=== PATIENT | female | born 1990 | race African-American/Black ===

== ENCOUNTER 2019-07-29 19:22 | Emergency (ER) | payer OTHER ==
[~2019-07-29] VITALS: Ht 208.3 cm; Wt 99.8 kg
[2019-07-29 19:59] LABS: URINE BILIRUBIN NEGATIVE (Negative); URINE BLOOD NEGATIVE (Negative); URINE CLARITY CLEAR; URINE COLOR YELLOW; URINE GLUCOSE-RANDOM* NEGATIVE (Negative); URINE KETONES TRACE (Negative); URINE LEUKOCYTES-REFLEX TRACE (Negative); URINE NITRITE-REFLEX NEGATIVE (Negative); URINE PROTEIN (DIPSTICK) NEGATIVE (Negative); URINE SPECIFIC GRAVITY >= 1.030 (1.005-1.035); URINE UROBILINOGEN 0.2 E.U./dl (0.2-1.0)
[2019-07-29 21:00] LABS: HEMATOCRIT 41.6 % (37.0-47.0); HEMOGLOBIN 13.9 gm/dL (12.0-15.0); MCH 32.3 pg (26.0-34.0); MCHC 33.3 g/dL (28.0-37.0); MCV 97.1 fL (80.0-100.0); PLATELET COUNT 337 thou/uL (150-400); RBC 4.29 mil/uL (4.20-5.00); RDW 13.3 % (10.5-14.5); WBC 7.9 thou/uL (4.0-11.0)
[2019-07-29 21:12] LABS: CALCIUM 8.3 mg/dL (8.5-10.1); CREATININE 0.7 mg/dL (0.6-1.0); POTASSIUM 3.4 mmol/L (3.5-5.1)
[2019-07-29 21:18] LABS: ALBUMIN 4.1 g/dL (3.4-5.0); TOTAL BILIRUBIN 0.6 mg/dL (<0.1-1.0); TOTAL PROTEIN 7.6 g/dL (6.4-8.2)
[2019-07-29 22:00] LABS: ABSOLUTE NEUTROPHILS 4.5 thou/uL (1.4-8.2); ANISOCYTOSIS 1+
[2019-07-29] MEDS ORDERED: ONDANSETRON HCL4 M2 PO (22:02)
[2019-07-29] MEDS ORDERED: PRENATAL FORMU1 EAC1 PO (22:06)
[2019-07-29 22:23] VITALS: BP 138/97
== END 2019-07-29 22:25 | disposition home or self-care (01) ==
LOC: ER 19:22
PROVIDERS: Emergency Medicine; Physician Assistant
DX: O21.8 Other vomiting complicating pregnancy (principal); O26.891 Other specified pregnancy related conditions, first trimester; M54.5 Low back pain; R10.30 Lower abdominal pain, unspecified; Z3A.01 Less than 8 weeks gestation of pregnancy

== ENCOUNTER 2019-12-28 09:20 | Emergency (ER) | payer OTHER ==
[~2019-12-28] VITALS: Ht 170.2 cm; Wt 90.7 kg
[~2019-12-28 09:20] MED LIST: ONDANSETRON HCL4 M2 PO; PRENATAL FORMU1 EAC1 PO
[2019-12-28 09:41] VITALS: BP 140/91
[2019-12-28 09:48] LABS: URINE BILIRUBIN NEGATIVE (Negative); URINE BLOOD NEGATIVE (Negative); URINE CLARITY CLEAR; URINE COLOR YELLOW; URINE GLUCOSE-RANDOM* NEGATIVE (Negative); URINE KETONES NEGATIVE (Negative); URINE LEUKOCYTES-REFLEX NEGATIVE (Negative); URINE NITRITE-REFLEX NEGATIVE (Negative); URINE PROTEIN (DIPSTICK) NEGATIVE (Negative); URINE SPECIFIC GRAVITY >= 1.030 (1.005-1.035); URINE UROBILINOGEN 0.2 E.U./dl (0.2-1.0)
[2019-12-28] MEDS ORDERED: FLAGYL500 M1 PO (10:11)
== END 2019-12-28 10:21 | disposition home or self-care (01) ==
LOC: ER 09:20
PROVIDERS: Student in an Organized Health Care Education/Training Program
DX: N76.0 Acute vaginitis (principal); B96.89 Other specified bacterial agents as the cause of diseases classified elsewhere; R19.7 Diarrhea, unspecified; Z79.899 Other long term (current) drug therapy

== ENCOUNTER 2020-07-05 08:42 | Emergency (ER) | payer OTHER ==
[~2020-07-05] VITALS: Ht 170.2 cm; Wt 86.2 kg
[~2020-07-05 08:42] MED LIST changes: +FLAGYL500 M1 PO
[2020-07-05] MEDS ORDERED: TYLENOL325 MG PO (09:35)
[2020-07-05] MEDS ORDERED: PRENATAL PO (09:36)
[2020-07-05 09:49] LABS: URINE BILIRUBIN NEGATIVE (Negative); URINE BLOOD NEGATIVE (Negative); URINE CLARITY CLEAR; URINE COLOR YELLOW; URINE GLUCOSE-RANDOM* NEGATIVE (Negative); URINE KETONES NEGATIVE (Negative); URINE LEUKOCYTES-REFLEX NEGATIVE (Negative); URINE NITRITE-REFLEX NEGATIVE (Negative); URINE PROTEIN (DIPSTICK) NEGATIVE (Negative); URINE SPECIFIC GRAVITY >= 1.030 (1.005-1.035); URINE UROBILINOGEN 0.2 E.U./dl (0.2-1.0)
[2020-07-05 11:56] VITALS: BP 148/106
== END 2020-07-05 11:56 | disposition home or self-care (01) ==
LOC: ER 08:42
PROVIDERS: Emergency Medicine
DX: O26.852 Spotting complicating pregnancy, second trimester (principal); Z79.899 Other long term (current) drug therapy; Z3A.20 20 weeks gestation of pregnancy